=== PATIENT | male | born 1990 | race Asian ===

== ENCOUNTER → 2017-01-14 | Outpatient (CLI) | payer OTHER ==
[~2017-01-14] MED LIST: CELE50CA PO; NXM/40 PO
== END | disposition home or self-care (01) ==
LOC: C.LABSPEC 10:02
PROVIDERS: ATTEND Urology
DX: N48.89 Other specified disorders of penis (principal)

== ENCOUNTER → 2017-04-23 | Outpatient (CLI) | payer OTHER ==
--- NOTE | 2017-04-23 09:46 | DIAGNOSTIC IMAGING REPORT ---
GI SERIES W/AIR ROUTINE CLINICAL HISTORY: 26-year-old male with history of acid reflux disease. TECHNIQUE: A standard air contrast upper GI series was performed. Spot images of the esophagus and stomach were obtained in multiple obliquities both upright and prone. COMPARISON: 02/06/2015. FINDINGS: The patient swallowed barium without difficulty. The esophagus is structurally normal without evidence of intrinsic or extrinsic mass. The esophageal mucosal pattern is normal. Small amount of gastroesophageal reflux was elicited by having the patient perform the Valsalva maneuver. The gastroesophageal junction distends normally. The stomach is normal in configuration and demonstrates normal distensibility. No mass or ulceration is identified. There was no evidence of gastritis. The duodenal bulb and sweep are unremarkable. Fluoroscopy time: 2 minutes. Fluoroscopic images: 23. IMPRESSION: Small amount of reflux without evidence of hiatal hernia or other abnormality. Electronically signed by: Justus Gan M.D. 04/23/2017 9:45 AM Dictated Date/Time: 04/23/2017 9:33 AM
== END | disposition home or self-care (01) ==
LOC: C.RAD 08:59
PROVIDERS: ATTEND Registered Nurse
DX: K21.9 Gastro-esophageal reflux disease without esophagitis (principal)